=== PATIENT | female | born 1955 | race Caucasian/White ===

== ENCOUNTER 2024-06-07 06:59 | Day surgery (SDC) | payer MEDICARE ==
[~2024-06-07] VITALS: Ht 170.2 cm; Wt 89.8 kg
[2024-06-07] VITALS (7 sets, daily range): BP systolic 115–152; BP diastolic 67–79; PULSE 52–61; RESP 13–19; TEMP 97.6; O2SAT 92–98
[~2024-06-07 06:59] MED LIST: ASPI-543 PO; ATEN-60 PO; LISI10TA34 PO
[2024-06-07] MEDS ORDERED: IODIXANOL 320MG/ML 100ML BTL IV ONE (07:44)
[2024-06-07] MEDS ORDERED: VERAPAMIL 2.5MG/ML INJ 2ML VIAL IV ONE (09:23)
[2024-06-07] MEDS ORDERED: HEPARIN SODIUM (PORCINE) 5000 UNITS/ML 1ML VIAL ONE (09:23)
[2024-06-07] MEDS ORDERED: fentaNYL CITRATE 100 MCG/2 ML VL ONE (09:24)
[2024-06-07] MEDS ORDERED: MIDAZOLAM HCL 2MG/2ML 2ml VIAL (1mg/ml) ONE (09:24)
[2024-06-07] MEDS ORDERED: LIDOCAINE 2%HCL (LOCAL ANESTH.) INJ 20ML MDV ONE (09:29)
== END 2024-06-07 12:12 | disposition home or self-care (01) ==
LOC: CATH 06:59
PROVIDERS: ATTEND Internal Medicine
DX: R94.39 Abnormal result of other cardiovascular function study (principal); Z79.82 Long term (current) use of aspirin
CPT/HCPCS: 93458; C1894; J1644; J2250; J3010; Q9967; 99152

== ENCOUNTER 2025-08-23 10:37 | Inpatient (IN) | payer MEDICARE ==
[~2025-08-23] VITALS: Ht 170.2 cm; Wt 90.1 kg
--- NOTE | 2025-08-23 11:19 | ED.PDOC ---
SOB-HPI HPI Comments HPI: 70 y/o F, with PMHx of HTN, presents to the ED for CC of shortness of breath. Patient states, she has been experiencing symptoms of shortness of breath for multiple months. Patient relays, shortness of breath to worsen while lying down and on execration. Patient reports, that she has followed up with a Explosive Operator Fuse for symptoms and was told symptoms were unrelated to her heart and were rather associated with her lungs. Patient denies chest pain, extremity swelling, fatigue, weakness, or Flu-like symptoms. No other symptoms or modifying factors are present at this time. Patient did not take her blood pressure medications today. Patient denies any history of congestive heart failure. Initial Vitals BP: HR: RR: O2 Sat: Temp: Past Medical history: HTN Past Surgical history: Heart ANGIOGRAM Medications: ATENOLOL, LISINOPRIL Social History: Denies smoking, ETOH, and drug use. Allergies: NKDA HPI: Poor Historian. REVIEW OF SYSTEMS: CONSTITUTIONAL: Denies acute: fever, diaphoresis, chills, HEAD: Denies acute: headache, photophobia Eyes: Denies acute: Double vision, vision loss, eye pain, eye discharge. EARS: Denies acute: tinnitus, hearing loss, ear discharge, ear pain, THROAT: Denies acute: sore throat, swelling, difficulty swallowing , pain with swallowing, change in voice. NECK: Denies acute: neck pain, neck swelling, stiff neck. HEART: Denies acute : chest pain, palpitations, LUNGS: Denies acute: wheezing, cough, hemoptysis ABDOMEN: Denies acute: abdominal pain, Nausea, Vomiting, diarrhea, melena , hematemesis, hematochezia SKIN: Denies acute: rash, redness, lesions, itchiness. EXTREMITIES: Denies acute: calf pain, numbness, tingling, weakness, denies pain in extremity. Denies acute: Low back pain. Neuro: Denies acute: focal neurological deficit, motor or sensory focal neurological deficit, tremors, seizure like activity, confusion, dizziness, change in mental status, loss of bowel or bladder function, cauda equina like symptoms. : Denies acute: dysuria, hematuria, flank pain, increase in urinary frequency. PSYCH: Denies acute: hallucination, suicidal ideation, homicidal ideation. FEMALE: Denies acute: abnormal vaginal bleeding, foul odor, unusual discharge. PHYSICAL EXAM: General: -----mild---acute distress, awake and alert. Head: normocephalic, atraumatic. No raccoon's eyes, no gonzalez sign. Neck: supple, trachea is midline, no swelling. Throat: Normal phonation. Eyes:, no erythema, no purulent discharge, no proptosis, no icterus. Heart: Irregular rate and rhythm consistent with atrial fibrillation with RVR, no significant murmur appreciated. Lungs: no apparent respiratory distress, Able to speak in full sentences. No wheezing, no rhonchi, no crackles. No stridors Clear to auscultation bilaterally. Abdomen: non tender to palpation, non distended, soft, no guarding, no rebound, + bowel sounds. Neuro: Awake, Alert, oriented to name, self, situation, follows commands GCS=15. Speech is normal. Skin: no petechia, no purpura, no cyanosis, non-pale, not jaundice. Lower extremities: --no - Pitting edema no deformity, no focal swelling, no calf TTP. Makes eye contact. moves all four extremities. Face: no apparent facial droop. Ambulating in the ED independently. ED COURSE: DISCLAIMER: This medical document was created using an electronic medical record system with voice recognition software and computerized dictation system. Although this document has been carefully reviewed, there might still be some phonetic and typographical errors. Occasional wrong-word or "sound-alike" substitutions may have occurred due to the inherent limitations of voice recognition software. The se areas are purely typographical due to imperfections of the software programs and do not reflect any compromise in the patient's medical care. Please read the chart carefully and recognize, using context, where these substitutions have occurred. Chief Complaint: Shortness of Breath Time Seen by MD: 11:00 Reviewed notes: Nurses Notes, Medications, Allergies Information Source: Patient Mode of Arrival: Ambulatory Severity: Moderate Timing: Months Duration: Since onset Context: At Rest PE Risk Factors: None History of: None Prehospital treatment: None Modifying Factors: Nothing Associated Signs and Symptoms: None EKG EKG : Pulse Rate (adult): 130 [place]: Normal Cardiac Rhythm: Afib Block: None Hypertrophy: None ST: Normal Was a procedure done? Was a procedure done?: No Differential Dx Differential Diagnosis: CHF, COPD, Pneumonia, Pulmonary Embolism, Other (DDx include ACS, unstable angina, anxiety, PE, pneumothroax, neoplasm, cardiac ischemia, COPD, asthma, CHF, pleural effusion, tobacco abuse, pneumonia, hypoxia, hypercapnia, anemia., infection/sepsis., pulmonary edema. Asthma, Cardiac tamponade, infection.) X-Ray, Labs, Meds, VS Vital Signs Date Time Temp Pulse Resp B/P (MAP) Pulse Ox O2 Delivery O2 Flow Rate FiO2 08/23/25 16:00 125/105 08/23/25 16:00 90 08/23/25 16:00 86 22 146/89 (108) 97 08/23/25 15:15 69 20 139/84 (102) 95 08/23/25 15:00 95 14 124/96 (105) 97 08/23/25 14:45 88 20 125/92 (103) 94 08/23/25 14:30 89 24 123/81 (95) 95 08/23/25 14:15 88 20 134/77 (96) 96 08/23/25 13:46 94 08/23/25 13:32 140/81 08/23/25 13:30 128 15 140/81 (100) 98 08/23/25 13:22 144 08/23/25 13:15 130 14 136/101 (113) 98 08/23/25 13:06 125/73 (90) 08/23/25 13:03 131 20 82/63 (69) 94 08/23/25 13:02 116/54 08/23/25 12:38 146 123/88 08/23/25 12:30 132 139/93 08/23/25 12:00 126 08/23/25 11:52 136 08/23/25 11:19 130 08/23/25 10:50 129 08/23/25 10:38 98.0 126 18 146/116 94 98.0 Lab Test 08/23/25 13:52 08/23/25 11:48 08/23/25 10:59 Range/Units D-Dimer, Quantitative 2.58 H 0.0-0.49 mg/L FEU Magnesium Level 2.1 1.6-2.6 mg/dL Troponin I High Sensitivity 6 5 5 </=34 ng/L Thyroid Stimulating Hormone (TSH) 2.69 0.55-4.78 uIU/mL White Blood Count 7.6 4.4-10.8 10^3/uL Red Blood Count 4.89 4.0-5.20 10^6/uL Hemoglobin 13.9 12.2-16.2 g/dL Hematocrit 41.9 36.0-46.0 % Mean Corpuscular Volume 85.7 80.0-100.0 fL Mean Corpuscular Hemoglobin 28.5 28.0-32.0 pg Mean Corpuscular Hemoglobin Concent 33.3 32.0-36.0 g/dL Red Cell Distribution Width 14.0 11.8-14.3 % Platelet Count 310 140-450 10^3/uL Mean Platelet Volume 8.7 6.9-10.8 fL Neutrophils (%) (Auto) 64.6 37.0-80.0 % Lymphocytes (%) (Auto) 23.8 10.0-50.0 % Monocytes (%) (Auto) 9.7 0.0-12.0 % Eosinophils (%) (Auto) 1.1 0.0-7.0 % Basophils (%) (Auto) 0.8 0.0-2.0 % Neutrophils # (Auto) 4.9 1.6-8.6 10 ^3/uL Lymphocytes # (Auto) 1.8 0.4-5.4 10 ^3/uL Monocytes # (Auto) 0.7 0-1.3 10 ^3/uL Eosinophils # (Auto) 0.1 0-0.8 10 ^3/uL Basophils # (Auto) 0.1 0-0.2 10 ^3/uL Nucleated Red Blood Cells 0.1 % Sodium Level 144 136-145 mmol/L Potassium Level 4.3 3.5-5.1 mmol/L Chloride Level 108 H 98-107 mmol/L Carbon Dioxide Level 24 20-31 mmol/L Anion Gap 12 5-15 Blood Urea Nitrogen 14 9-23 mg/dL Creatinine 0.97 0.550-1.02 mg/dL Glomerular Filtration Rate Calc 64 >90 mL/min BUN/Creatinine Ratio 14.4 10.0-20.0 Serum Glucose 106 74-106 mg/dL Hemoglobin A1c 5.7 <5.7 % A1C Calcium Level 9.3 8.7-10.4 mg/dL Total Bilirubin 1.0 0.2-1.0 mg/dL Aspartate Amino Transferase (AST) 61 H 13-40 U/L Alanine Aminotransferase (ALT) 84 H 7-40 U/L Alkaline Phosphatase 88 46-116 U/L B-Type Natriuretic Peptide 483.66 0-100 pg/mL Total Protein 7.3 5.7-8.2 g/dL Albumin 4.5 3.2-4.8 g/dL Current Medications Medications (Trade) Dose Ordered Sig/Jeanna Route Start Time Stop Time Status Last Admin Metoprolol Tartrate (Lopressor) 5 mg ONCE ONCE IV 08/23/25 12:00 08/23/25 12:16 DC 08/23/25 12:30 Metoprolol Tartrate (Lopressor) 5 mg ONCE ONCE IV 08/23/25 12:45 08/23/25 12:46 DC 08/23/25 12:38 Diltiazem HCl 125 ml @ 5 mls/hr Q24H ONCE IV 08/23/25 12:45 08/24/25 12:44 08/23/25 13:02 [place] [id number] Ph: [phone] DIAGNOSTIC IMAGING Diagnostic Imaging Report : [id number] Signed PATIENT: JERSEY CONROY ACCT: [id number] UNIT: [id number] : 1955 LOC: ER ROOM / BED: / AGE / SEX: 70 / F ADM STATUS: REG ER SERVICE 1049 ORDERING PHYSICIAN: ERIC ORTEGA DO PROCEDURE(s): CXRP - CHEST PORTABLE REASON: SOB ORDER NUMBER(s): [id number], ACCESSION NUMBER(s): [id number] CHEST RADIOGRAPH Indication: SOB Technique: Single frontal view of the chest was obtained COMPARISON: XY CSPINE COMP 5 VIEW on DOS: 12/27/22 FINDINGS: Lines and Tubes: None Lungs: Increased interstitial prominence. This may represent pulmonary vascular congestion and/or viral pneumonia. Pleura: No effusion. No pneumothorax. Cardiomediastinal contours: Unremarkable Bones: Unremarkable IMPRESSION: Increased interstitial prominence. This may represent pulmonary vascular congestion and/or viral pneumonia. ATED BY: BRADY BORRERO MD DICTATED DATE/TIME: 08/23/251131 SIGNED BY: BRADY BORRERO MD SIGNED DATE/TIME: 08/23/251131 CC: Time of 1ST Reevaluation: 11:30 Reevaluation 1ST: Unchanged Time of 2ND Reevaluation: 21:12 Reevaluation 2ND: Improved Patient Education/Counseling: Diagnosis, Treatment Family Education/Counseling: No Family Present Comments MDM: patient presented with the above HPI.---shortness of breath---workup was initiated. patient was found with the above mentioned diagnosis. the following medications were ordered: please refer to order lists of meds and tests obtained by myself Dr. Ortega. Patient ED course and VS have been stabilized. Patient has been reassessed in the ED and remained in a stable condition. Pertinent incidental findings were discussed with the patient and/or family. Patient/family voices understanding and is agreeable with plan. Patient has been observed in the ED adequate length of time to insure improvement/stability. Escalation of care considered: Consideration of escalation to observation or admission Patient was found with a new onset atrial fibrillation with RVR. Patient was given Lopressor at least two boluses consistent with the home medications of metoprolol. Patient does not respond to the metoprolol continued to be in AFib with RVR. Diltiazem drip was ordered. Patient was found with elevated D-dimer. CTA angiogram of the chest is still pending. Patient was ADMITTED to the medicine team for further evaluation and treatment of their presentation. All the reports of any imaging studies that were ordered by myself were reviewed by myself. 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 Paper Coating Machine Setter (08/23/25 ) Chest Portable (08/23/25 10:49) Diltiazem 125mg/125ml Bag Kit (Cardizem) (08/23/25 12:45) Vital Signs Date Time Temp Pulse Resp B/P (MAP) Pulse Ox O2 Delivery O2 Flow Rate FiO2 08/23/25 16:00 125/105 08/23/25 16:00 90 08/23/25 16:00 86 22 146/89 (108) 97 08/23/25 15:15 69 20 139/84 (102) 95 08/23/25 15:00 95 14 124/96 (105) 97 08/23/25 14:45 88 20 125/92 (103) 94 08/23/25 14:30 89 24 123/81 (95) 95 08/23/25 14:15 88 20 134/77 (96) 96 08/23/25 13:46 94 08/23/25 13:32 140/81 08/23/25 13:30 128 15 140/81 (100) 98 08/23/25 13:22 144 08/23/25 13:15 130 14 136/101 (113) 98 08/23/25 13:06 125/73 (90) 08/23/25 13:03 131 20 82/63 (69) 94 08/23/25 13:02 116/54 08/23/25 12:38 146 123/88 08/23/25 12:30 132 139/93 08/23/25 12:00 126 08/23/25 11:52 136 08/23/25 11:19 130 08/23/25 10:50 129 08/23/25 10:38 98.0 126 18 146/116 94 98.0 Laboratory Tests Test 08/23/25 10:59 White Blood Count 7.6 10^3/uL (4.4-10.8) Medications Medications Dose Ordered Sig/Jeanna Route Start Time Stop Time Status Last Admin Dose Admin Diltiazem HCl 125 ml @ 5 mls/hr Q24H ONCE IV 08/23/25 12:45 08/24/25 12:44 08/23/25 13:02 Metoprolol Tartrate 5 mg ONCE ONCE IV 08/23/25 12:00 08/23/25 12:16 DC 08/23/25 12:30 Metoprolol Tartrate 5 mg ONCE ONCE IV 08/23/25 12:45 08/23/25 12:46 DC 08/23/25 12:38 Departure 1 Departure Time of Disposition: 11:21 Impression: Primary Impression: Atrial fibrillation with RVR Disposition: ADMITTED INPATIENT Admit to: Tele Condition: Guarded Critical Care Note Critical Care Time?: Yes (55 min-critical care time only) Heart Score Heart Score: Heart Score Response (Comments) Value History Slightly Suspicious [address]-Deviation 2 Age >65 2 Risk Factors 1 or 2 risk factors 1 Troponin Normal limit 0 Total 5 I personally scribed for ERIC ORTEGA DO ([email or web address]) on 08/23/25 at 11:19. Electronically submitted by Noreen Reynoos ([email or web address]). I personally scribed for ERIC ORTEGA DO ([email or web address]) on 08/23/25 at 12:55. Electronically submitted by Noreen Reynoso ([email or web address]). ERIC ORTEGA DO Aug 23, 2025 11:19
--- NOTE | 2025-08-23 11:34 | DVH ---
CHEST RADIOGRAPH Indication: SOB Technique: Single frontal view of the chest was obtained COMPARISON: XY CSPINE COMP 5 VIEW on DOS: 12/27/22 FINDINGS: Lines and Tubes: None Lungs: Increased interstitial prominence. This may represent pulmonary vascular congestion and/or viral pneumonia. Pleura: No effusion. No pneumothorax. Cardiomediastinal contours: Unremarkable Bones: Unremarkable IMPRESSION: Increased interstitial prominence. This may represent pulmonary vascular congestion and/or viral pneumonia.
[2025-08-23 11:40] LABS: Hematocrit 41.9 % (36.0-46.0); Hemoglobin 13.9 g/dL (12.2-16.2); Mean Corpuscular Hemoglobin 28.5 pg (28.0-32.0); Mean Corpuscular Volume 85.7 fL (80.0-100.0); Nucleated Red Blood Cells % 0.1 %
[2025-08-23 11:57] LABS: Albumin 4.5 g/dL (3.2-4.8); Alkaline Phosphatase 88 U/L (46-116); Anion Gap 12 (5-15); BUN/Creatinine Ratio 14.4 (10.0-20.0); Blood Urea Nitrogen 14 mg/dL (9-23); Calcium 9.3 mg/dL (8.7-10.4); Carbon Dioxide 24 mmol/L (20-31); Potassium 4.3 mmol/L (3.5-5.1); Sodium 144 mmol/L (136-145); Total Protein 7.3 g/dL (5.7-8.2)
[2025-08-23 11:58] LABS: Alanine Aminotransferase 84 U/L (7-40); Bilirubin, Total 1.0 mg/dL (0.2-1.0); Chloride 108 mmol/L (98-107); Glucose 106 mg/dL (74-106)
[2025-08-23] MEDS: METOPROLOL TARTRATE 1MG/1ML-5ML VIAL IV ONE ×2 (12:30→12:38)
--- NOTE | 2025-08-23 12:41 | ECG ---
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
--- NOTE | 2025-08-23 13:36 | ECG ---
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
--- NOTE | 2025-08-23 13:36 | ECG ---
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
[2025-08-23] MEDS ORDERED: ONDANSETRON HCL 4 MG/2 ML VIAL IV PRN (16:30)
[2025-08-23] MEDS ORDERED: MORPHINE SULFATE INJ 2 MG/ml SYRG IV PRN (16:30)
[2025-08-23] MEDS ORDERED: NITROGLYCERIN 0.4 MG SL TAB SL PRN (16:30)
--- NOTE | 2025-08-23 16:47 | DVHHPRES ---
History of Present Illness Resident Creating Document: LANDY RODRIGUEZ RESIDENT History of Present Illness Teresa Aj is a 70-year old female with past medical history of hypertension who came to the ED with a chief complaint of shortness of breath since 2 days. Patient mentions she has been having shortness of breaths since 2 days, mostly at night, increased on lying down and she felt like she was gasping for air. The patient mentioned that she has been experiencing palpitations on and off since the last 4 years and has been following up with cardiology. The patient mentioned she also had a slight nonproductive cough since the last 2 days. She denies any fever, chills, tightness in the chest or chest pain. The patient went to urgent care this morning, where she was told she has an enlarged heart and was sent to the ED. Patient mentions she has had similar complaints in the past and had to come to the ED twice before. She mentioned she had chest pain last year when she underwent angiography but no stents were placed. On admission, patient was found to have AFib with RVR. She was admitted for further management. She was started on diltiazem drip, which was discontinued later and she was given metoprolol 12.5 mg po. Past medical history : Hypertension Past surgical history: Angiography last year, no stents placed, Tonsillectomy in childhood Home medications: Atenolol 25 mg p.o. daily, lisinopril 10 mg p.o. daily Social & Personal history: Lives at home by herself Smoking: Denies Alcohol: Rare consumption Drugs: Denies Allergies: No known allergies Review of Systems Review of Systems Patient seen and examined at bedside. Patient is alert and oriented to time, place person and responding to all questions. Eyes: No Pain, No Vision change, No Conjunctivae inflammation, No Eyelid i nflammation, No Redness ENT: No Ear pain, No Ear discharge, No Nose pain, No Nose discharge, No Nose congestion, No Mouth pain, No Mouth swelling, No Throat pain, No Throat swelling Cardiovascular: No Chest Pain, No Palpitations, No Orthopnea, No Paroxysmal No Dyspnea, No Edema, No Lt Headedness Respiratory: Cough, No Dry, Shortness of breath, No SOB with exertion, No Wheezing, No Hemoptysis, No Pleuritic Pain, No Sputum Gastrointestinal: No Nausea, No Vomiting, No Abdominal Pain, No Diarrhea, No Constipation, No Melena, No Hematochezia Genitourinary: No Dysuria, No Frequency, No Incontinence, No Hematuria, No Retention Allergies: Coded Allergies: NO KNOWN ALLERGIES (Unverified , 08/23/25) Medications Current Medications Medications Dose Ordered Sig/Jeanna Route Start Time Stop Time Status Last Admin Dose Admin Ondansetron HCl 4 mg Q4HP PRN IV 08/23/25 16:30 Acetaminophen 650 mg Q6HP PRN PO 08/23/25 16:30 Nitroglycerin 0.4 mg Q5MINP PRN SL 08/23/25 16:30 Morphine Sulfate 2 mg Q30M PRN IV 08/23/25 16:30 Enoxaparin Sodium 80 mg Q12HR SC 08/23/25 22:00 UNV Lisinopril 10 mg DAILY PO 08/24/25 10:00 UNV Enoxaparin Sodium 80 mg BID SC 08/23/25 22:00 Exam Vital Signs Vital Signs Date Time Temp Pulse Resp B/P (MAP) Pulse Ox O2 Delivery O2 Flow Rate FiO2 08/23/25 16:00 125/105 08/23/25 16:00 86 22 97 08/23/25 10:38 98.0 98.0 Exam General Appearance: Cooperative. Well developed. Well nourished. NAD Head Exam: Normal inspection Neck Exam: Normal inspection. Non-tender. Normal alignment Pulmonary/Respiratory: Chest non-tender. Clear bilateral breath sounds, no multi craft maintenance technician ckles, no wheezing. Cardiovascular/Chest: irregular rate and rhythm. No murmurs. No JVD. Peripheral Pulses: 2+ Radial (R). 2+ Radial (L). 2+ Pedal (R). 2+ Pedal (L) Abdominal Exam: Normal bowel sounds. Soft. normal abdomen, no visible veins, Nontender. No hepatospenomegaly. No masses Ankle Exam: Negative ankle edema Lower extremities: Negative lower extremity edema Neuro/Mental Status: A&O x4. Coherent. Thoughts/Psych: Normal thought pattern. Appropriate mood and affect. Good judgement and insight Skin Exam: Normal inspection. Normal color. Warm. Dry Labs/Xrays Labs Test 08/23/25 13:52 08/23/25 10:59 Range/Units Troponin I High Sensitivity 6 </=34 ng/L White Blood Count 7.6 4.4-10.8 10^3/uL Red Blood Count 4.89 4.0-5.20 10^6/uL Hemoglobin 13.9 12.2-16.2 g/dL Hematocrit 41.9 36.0-46.0 % Mean Corpuscular Volume 85.7 80.0-100.0 fL Mean Corpuscular Hemoglobin 28.5 28.0-32.0 pg Mean Corpuscular Hemoglobin Concent 33.3 32.0-36.0 g/dL Red Cell Distribution Width 14.0 11.8-14.3 % Platelet Count 310 140-450 10^3/uL Mean Platelet Volume 8.7 6.9-10.8 fL Neutrophils (%) (Auto) 64.6 37.0-80.0 % Lymphocytes (%) (Auto) 23.8 10.0-50.0 % Monocytes (%) (Auto) 9.7 0.0-12.0 % Eosinophils (%) (Auto) 1.1 0.0-7.0 % Basophils (%) (Auto) 0.8 0.0-2.0 % Neutrophils # (Auto) 4.9 1.6-8.6 10 ^3/uL Lymphocytes # (Auto) 1.8 0.4-5.4 10 ^3/uL Monocytes # (Auto) 0.7 0-1.3 10 ^3/uL Eosinophils # (Auto) 0.1 0-0.8 10 ^3/uL Basophils # (Auto) 0.1 0-0.2 10 ^3/uL Nucleated Red Blood Cells 0.1 % Sodium Level 144 136-145 mmol/L Potassium Level 4.3 3.5-5.1 mmol/L Chloride Level 108 H 98-107 mmol/L Carbon Dioxide Level 24 20-31 mmol/L Anion Gap 12 5-15 Blood Urea Nitrogen 14 9-23 mg/dL Creatinine 0.97 0.550-1.02 mg/dL Glomerular Filtration Rate Calc 64 >90 mL/min BUN/Creatinine Ratio 14.4 10.0-20.0 Serum Glucose 106 74-106 mg/dL Calcium Level 9.3 8.7-10.4 mg/dL Total Bilirubin 1.0 0.2-1.0 mg/dL Aspartate Amino Transferase (AST) 61 H 13-40 U/L Alanine Aminotransferase (ALT) 84 H 7-40 U/L Alkaline Phosphatase 88 46-116 U/L B-Type Natriuretic Peptide 483.66 0-100 pg/mL Total Protein 7.3 5.7-8.2 g/dL Albumin 4.5 3.2-4.8 g/dL SEPSIS Sepsis Screen Date sepsis recognized/suspect: Aug 23, 2025 Time Sepsis recognized/suspect: 1041 Recent Procedure: No On Antibiotic Therapy: No Respiratory Rate >20: No Heart Rate >90: Yes Temp<36 C (96.8 F) or >38.3 C: No SBP <90 or MAP <65 mmHG: No New Acute Mental Status Change: No Is the patient on CPAP, BIPAP,: No Physician Orders Electrocardigram (08/23/25 10:41) Electrocardigram (08/23/25 11:41) Electrocardigram (08/23/25 13:41) Dry Chain Operator (08/23/25 ) Urinalysis (08/23/25 10:49) Chest Portable (08/23/25 10:49) Diltiazem 125mg/125ml Bag Kit (Cardizem) (08/23/25 12:45) Admit (08/23/25 16:24) Allergies (08/23/25 16:24) Code Status (08/23/25 16:24) Ondansetron Hcl (Zofran) (08/23/25 16:30) Complete Blood Count (08/24/25 04:00) Comprehensive Metabolic Panel (08/24/25 04:00) Condition: Unstable (08/23/25 16:24) Acetaminophen Tablet (Tylenol Tablet) (08/23/25 16:30) Clear Liq Diet (08/23/25 Dinner) Nitroglycerin Sublingual (Ntrostat Subli (08/23/25 16:30) Morphine Sulfate Injection (08/23/25 16:30) Notify Md Of Changes From Base (08/23/25 16:24) Automobile Service Advisor For 24 Hours (08/23/25 16:24) Emergency Dysrhythmia Protocol (08/23/25 16:24) Rhythm Strips Once Every Shift (08/23/25 16:24) Stat Ekg For Chest Pain (08/23/25 16:24) Echo 2d Mode Cardiac Dop (08/23/25 16:28) D-Dimer (08/23/25 16:28) Thyroid Stimulating Hormone (08/23/25 16:28) Urinalysis (08/23/25 16:28) Rapid Influenza A&B (08/23/25 16:28) Hemoglobin A1c (08/23/25 16:35) Aspirin Tablet (08/24/25 10:00) Lisinopril Tablet (Zestril Tablet) (08/24/25 10:00) Enoxaparin Sodium (Lovenox) (08/23/25 22:00) Vital Signs Date Time Temp Pulse Resp B/P (MAP) Pulse Ox O2 Delivery O2 Flow Rate FiO2 08/23/25 16:00 125/105 08/23/25 16:00 86 22 146/89 (108) 97 08/23/25 15:15 69 20 139/84 (102) 95 08/23/25 15:00 95 14 124/96 (105) 97 08/23/25 14:45 88 20 125/92 (103) 94 08/23/25 14:30 89 24 123/81 (95) 95 08/23/25 14:15 88 20 134/77 (96) 96 08/23/25 13:46 94 08/23/25 13:32 140/81 08/23/25 13:30 128 15 140/81 (100) 98 08/23/25 13:22 144 08/23/25 13:15 130 14 136/101 (113) 98 08/23/25 13:06 125/73 (90) 08/23/25 13:03 131 20 82/63 (69) 94 08/23/25 13:02 116/54 08/23/25 12:38 146 123/88 08/23/25 12:30 132 139/93 08/23/25 12:00 126 08/23/25 11:52 136 08/23/25 11:19 130 08/23/25 10:50 129 08/23/25 10:38 98.0 126 18 146/116 94 98.0 Laboratory Tests Test 08/23/25 10:59 White Blood Count 7.6 10^3/uL (4.4-10.8) Medications Medications Dose Ordered Sig/Jeanna Route Start Time Stop Time Status Last Admin Dose Admin Diltiazem HCl 125 ml @ 5 mls/hr Q24H ONCE IV 08/23/25 12:45 08/24/25 12:44 08/23/25 13:02 5 MLS/HR Metoprolol Tartrate 5 mg ONCE ONCE IV 08/23/25 12:00 08/23/25 12:16 DC 08/23/25 12:30 5 MG Metoprolol Tartrate 5 mg ONCE ONCE IV 08/23/25 12:45 08/23/25 12:46 DC 08/23/25 12:38 5 MG Assessment/Plan Assessment/Plan # Acute Afib with RVR, unknown onset # Possible acute CHF exacerbation # Possible acute pneumonia, likely bacterial gram positive/gram negative # Possible acute pulmonary edema # Acute hypoxic respiratory distress, likely due to above # Rule out PE CHADVASc score of 4 -EKG showed Afib -Echo ordered, pending report -Diltiazem drip 5ml/hr,discontinued after titrating down -started anticoagulation with aspirin 81mg po daily -cardiology consult for Dr Hu -Ddimer is 2.56- ordered CT angio chest -started on anticoagulation with lovenox 80 mg iv bid # Hypertension, controlled -resume home medications lisinopril 10mg po daily -started metoprolol tartrate 12.5 mg po once, continue with 25mg po bid PUD prophylaxis: DVT prophylaxis: Goals of care: Full code, discussed for >23 minutes Plan discussed with patient Plan discussed with Dr Cool Plan discussed with: Patient, Daughter My Orders Orders - LANDY RODRIGUEZ RESIDENT Procedure Category Date Status Time Admit ADMIT 08/23/25 Transmitted 16:24 Allergies RICARDO 08/23/25 In Process 16:24 Code Status CODE 08/23/25 Transmitted 16:24 Ondansetron Hcl PHA 08/23/25 In Process (Zofran) 16:30 Complete Blood Count LAB 08/24/25 Verified 04:00 Comprehensive LAB 08/24/25 Verified Metabolic Panel 04:00 Condition: Unstable RICARDO 08/23/25 In Process 16:24 Acetaminophen Tablet PHA 08/23/25 In Process (Tylenol Tablet) 16:30 Clear Liq Diet DIET 08/23/25 Transmitted Dinner Nitroglycerin PHA 08/23/25 In Process Sublingual (Ntrostat 16:30 Morphine Sulfate PHA 08/23/25 In Process Injection 16:30 Notify Of Changes RICARDO 08/23/25 In Process From Base 16:24 Automobile Service Advisor For [facility] 08/23/25 In Process 24 Hours 16:24 Emergency Dysrhythmia RICARDO 08/23/25 In Process Protocol 16:24 Rhythm Strips Once [facility] 08/23/25 In Process Every Shift 16:24 Stat Ekg For Chest [facility] 08/23/25 In Process Pain 16:24 Echo 2d Mode Cardiac US 08/23/25 Logged DOP 16:28 D-Dimer LAB 08/23/25 In Process 16:28 Thyroid Stimulating LAB 08/23/25 In Process Hormone 16:28 Urinalysis LAB 08/23/25 Logged 16:28 Rapid Influenza A&B LAB 08/23/25 Logged 16:28 Hemoglobin A1c LAB 08/23/25 In Process 16:35 Date of Service: Aug 23, 2025 Billing Provider: GEORGE SIERRA MD Common Visit Codes: [id number] INP/OBS CARE (HIGH) LANDY RODRIGUEZ RESIDENT Aug 23, 2025 16:47
[2025-08-23] MEDS: METOPROLOL TARTRATE 25 MG TAB PO ONE (17:22)
[2025-08-23] MEDS: LISINOPRIL 20 MG TAB PO ONE ×2 (18:56→18:57)
[2025-08-23 19:30] VITALS: PULSE 114; RESP 18; O2SAT 96
[2025-08-23] MEDS: IOHEXOL 350 MG/ML 100ML IJ ONE (20:32)
[2025-08-23] MEDS: METOPROLOL TARTRATE 25 MG TAB PO SCH (21:51)
[2025-08-23 21:52] LABS: Urine Protein, UAD TRACE (Negative)
[2025-08-23] MEDS: ENOXAPARIN SOD 80 MG/0.8ML SYRINGE SC SCH (21:52)
[2025-08-23] MEDS ORDERED: ENOXAPARIN SOD 100 MG/1 ML SYRINGE SC SCH (22:00)
[2025-08-23 22:11] LABS: Amphetamine Screen, Urine Neg (NEGATIVE); Barbiturate Scree,Urine Neg (NEGATIVE); Benzodiazephine Screen, Urine Neg (NEGATIVE); Cannabinoid Screen, Urine Neg (NEGATIVE); Cocaine Screen, Urine Neg (NEGATIVE); Opiate Scree,Urine Neg (NEGATIVE); Phencyclidine Screen, Urine Neg (NEGATIVE)
[2025-08-23 22:32] LABS: COVID19 ANTIGEN SOFIA FIA NEGATIVE (NEGATIVE)
[2025-08-24] VITALS (9 sets, daily range): BP systolic 122–136; BP diastolic 68–96; PULSE 82–137; RESP 16–19; TEMP 97.2–97.4; O2SAT 95–99
[2025-08-24] MEDS: METOPROLOL TARTRATE 25 MG TAB PO ONE (03:32)
[2025-08-24 04:54] LABS: Hematocrit 38.3 % (36.0-46.0); Hemoglobin 12.8 g/dL (12.2-16.2); Mean Corpuscular Hemoglobin 28.6 pg (28.0-32.0); Mean Corpuscular Volume 85.7 fL (80.0-100.0); Nucleated Red Blood Cells % 0.1 %
[2025-08-24 05:22] LABS: Albumin 3.9 g/dL (3.2-4.8); Alkaline Phosphatase 74 U/L (46-116); Anion Gap 11 (5-15); BUN/Creatinine Ratio 19.4 (10.0-20.0); Blood Urea Nitrogen 14 mg/dL (9-23); Calcium 8.9 mg/dL (8.7-10.4); Carbon Dioxide 21 mmol/L (20-31); Glucose 89 mg/dL (74-106); Potassium 4.0 mmol/L (3.5-5.1); Sodium 140 mmol/L (136-145); Total Protein 6.5 g/dL (5.7-8.2)
[2025-08-24 05:27] LABS: Alanine Aminotransferase 61 U/L (7-40); Bilirubin, Total 1.3 mg/dL (0.2-1.0); Chloride 108 mmol/L (98-107)
--- NOTE | 2025-08-24 07:30 | DVH ---
CTA Chest with intravenous contrast INDICATION: rule out PE COMPARISON: XY CHEST PORTABLE on DOS: 08/23/25 TECHNIQUE: Multidetector spiral CTA of the chest was performed of the chest with 100 cc of omnipaque 350 intravenous contrast. PULMONARY ANGIOGRAPHY PROTOCOL was utilized using a bolus-tracking technique centered on the main pulmonary artery. Coronal and sagittal multiplanar and MIP reformats were performed. Radiation Dose : 1. Chest: CTDI volume is 38.44 mGy. Dose-length product is 991.7 mGy*cm The dose indicators for CT are the volume Computed Tomography (CT) Dose Index (CTDIvol) and the Dose Length Product (DLP), and are measured in units of mGy and mGy-cm, respectively. These indicators are not patient dose, but values generated from the CT scanner acquisition factors. The report includes radiation exposure data for exposures received during this examination. FINDINGS: Pulmonary artery: No central, lobar or proximal segmental pulmonary embolus. Lower neck: Unremarkable thyroid. Lungs: Bilateral interlobular septal thickening. Mild diffuse ground-glass opacities. Central airways: Patent Pleura: No pneumothorax. Small bilateral pleural effusions. Heart/Vascular Structures: The heart is enlarged. No pericardial effusion. Thoracic aorta is normal in caliber. No aneurysm or dissection. Lymph Nodes: No mediastinal or hilar lymphadenopathy. Esophagus:Grossly unremarkable. Musculoskeletal: Unremarkable. Body wall: Unremarkable. Upper abdomen: Unremarkable. IMPRESSION: 1. No evidence of pulmonary embolism. 2. Bilateral interlobular septal thickening and mild diffuse ground-glass opacity suggestive of pulmonary edema. 3. Small bilateral pleural effusions. 4. Cardiomegaly.
[2025-08-24] MEDS: METOPROLOL TARTRATE 25 MG TAB PO SCH (08:50)
[2025-08-24] MEDS: LISINOPRIL 5 MG TAB PO SCH (08:50)
[2025-08-24] MEDS: DIGOXIN 0.125 MG TAB PO ONE (09:33)
[2025-08-24] MEDS: FUROSEMIDE 20 MG/2 ML VIAL IV SCH (11:29)
--- NOTE | 2025-08-24 11:55 | DVHINCON2 ---
Date of service: Aug 24, 2025 History of Present Illness Teresa Aj is a 70-year old female with past medical history of hypertension who came to the ED with a chief complaint of shortness of breath since 2 days. Patient mentions she has been having shortness of breaths since 2 days, mostly at night, increased on lying down and she felt like she was gasping for air. The patient mentioned that she has been experiencing palpitations on and off since the last 4 years and has been following up with cardiology. The patient mentioned she also had a slight nonproductive cough since the last 2 days. She denies any fever, chills, tightness in the chest or chest pain. The patient went to urgent care this morning, where she was told she has an enlarged heart and was sent to the ED. Patient mentions she has had similar complaints in the past and had to come to the ED twice before. She mentioned she had chest pain last year when she underwent angiography but no stents were placed. On admission, patient was found to have AFib with RVR. She was admitted for further management. She was started on diltiazem drip, which was discontinued later and she was given metoprolol 12.5 mg po. Past medical history : Hypertension Past surgical history: Angiography last year, no stents placed, Tonsillectomy in childhood Home medications: Atenolol 25 mg p.o. daily, lisinopril 10 mg p.o. daily Social & Personal history: Lives at home by herself Smoking: Denies Alcohol: Rare consumption Drugs: Denies Allergies: No known allergies Past Medical History reviewed Allergies: Coded Allergies: NO KNOWN ALLERGIES (Unverified , 08/23/25) Home Meds Reported Medications Aspirin (Aspir-Low) 81 Mg Tab, 81 MG PO DAILY for CHEST PAIN, MG 06/02/24 Atenolol (Atenolol) 25 Mg Tab, 25 MG PO DAILY for HTN, MG 06/02/24 Lisinopril (Lisinopril) 10 Mg Tab, 10 MG PO DAILY for HTN for 30 Days, MG 06/02/24 Current Medications Current Medications Medications (Trade) Dose Ordered Sig/Jeanna Route PRN Reason Start Time Stop Time Status Last Admin Ondansetron HCl (Zofran) 4 mg Q4HP PRN IV NAUSEA / VOMITING 08/23/25 16:30 Acetaminophen (Tylenol Tablet) 650 mg Q6HP PRN PO PAIN SCALE 1-3 OR TEMP>100.4 08/23/25 16:30 Nitroglycerin (Ntrostat Sublingual) 0.4 mg Q5MINP PRN SL FOR CHEST PAIN 08/23/25 16:30 Morphine Sulfate 2 mg Q30M PRN IV FOR CHEST PAIN 08/23/25 16:30 Enoxaparin Sodium (Lovenox) 80 mg Q12HR SC 08/23/25 22:00 UNV Aspirin 81 mg DAILY PO 08/24/25 10:00 08/24/25 08:49 Lisinopril (Zestril Tablet) 10 mg DAILY PO 08/24/25 10:00 08/24/25 08:50 Enoxaparin Sodium (Lovenox) 80 mg BID SC 08/23/25 22:00 08/24/25 08:51 Metoprolol Tartrate (Lopressor Tablet) 25 mg BID PO 08/23/25 22:00 08/24/25 06:10 DC 08/23/25 21:51 Ceftriaxone Sodium 50 ml @ 100 mls/hr DAILY@09 IV 08/24/25 09:00 08/24/25 08:46 Metoprolol Tartrate (Lopressor Tablet) 50 mg BID PO 08/24/25 10:00 08/24/25 08:50 Digoxin (Lanoxin Tablet) 0.125 mg DAILY PO 08/25/25 10:00 Furosemide (Lasix Injection) 20 mg DAILY IV 08/24/25 10:00 08/24/25 11:29 Review of Systems 10 pt ros otherwise negative Vital Signs Vital Signs Date Time Temp Pulse Resp B/P (MAP) Pulse Ox O2 Delivery O2 Flow Rate FiO2 08/24/25 11:29 129/87 08/24/25 09:50 121 08/24/25 09:30 21 96 08/24/25 08:00 Room Air* 0 21 08/24/25 08:00 98.1 98.1 Physical Exam nad s1 s2 irregular ctab soft nt/nd no edema Labs/Diagnostic Data Labs Test 08/24/25 04:39 08/23/25 22:01 08/23/25 21:30 08/23/25 17:09 Range/Units White Blood Count 7.2 4.4-10.8 10^3/uL Red Blood Count 4.46 4.0-5.20 10^6/uL Hemoglobin 12.8 12.2-16.2 g/dL Hematocrit 38.3 36.0-46.0 % Mean Corpuscular Volume 85.7 80.0-100.0 fL Mean Corpuscular Hemoglobin 28.6 28.0-32.0 pg Mean Corpuscular Hemoglobin Concent 33.4 32.0-36.0 g/dL Red Cell Distribution Width 14.0 11.8-14.3 % Platelet Count 253 140-450 10^3/uL Mean Platelet Volume 8.3 6.9-10.8 fL Neutrophils (%) (Auto) 67.5 37.0-80.0 % Lymphocytes (%) (Auto) 21.3 10.0-50.0 % Monocytes (%) (Auto) 9.2 0.0-12.0 % Eosinophils (%) (Auto) 1.4 0.0-7.0 % Basophils (%) (Auto) 0.6 0.0-2.0 % Neutrophils # (Auto) 4.9 1.6-8.6 10 ^3/uL Lymphocytes # (Auto) 1.5 0.4-5.4 10 ^3/uL Monocytes # (Auto) 0.7 0-1.3 10 ^3/uL Eosinophils # (Auto) 0.1 0-0.8 10 ^3/uL Basophils # (Auto) 0 0-0.2 10 ^3/uL Nucleated Red Blood Cells 0.1 % Sodium Level 140 136-145 mmol/L Potassium Level 4.0 3.5-5.1 mmol/L Chloride Level 108 H 98-107 mmol/L Carbon Dioxide Level 21 20-31 mmol/L Anion Gap 11 5-15 Blood Urea Nitrogen 14 9-23 mg/dL Creatinine 0.72 0.550-1.02 mg/dL Glomerular Filtration Rate Calc 91 >90 mL/min BUN/Creatinine Ratio 19.4 10.0-20.0 Serum Glucose 89 74-106 mg/dL Calcium Level 8.9 8.7-10.4 mg/dL Total Bilirubin 1.3 H 0.2-1.0 mg/dL Aspartate Amino Transferase (AST) 34 13-40 U/L Alanine Aminotransferase (ALT) 61 H 7-40 U/L Alkaline Phosphatase 74 46-116 U/L Total Protein 6.5 5.7-8.2 g/dL Albumin 3.9 3.2-4.8 g/dL SARS-CoV-2 Antigen (Rapid) Negative NEGATIVE Urine Color Yellow Yellow Urine Clarity Clear Clear Urine pH 5.0 5.0-9.0 Urine Specific [place] 1.027 1.001-1.035 Urine Protein Trace H Negative Urine Ketones 1+ H Negative Urine Blood Negative Negative /uL Urine Nitrite Negative Negative Urine Bilirubin Negative Negative Urine Urobilinogen Normal Negative mg/dL Urine Leukocyte Esterase 3+ Negative /uL Urine RBC 5 0 - 4 /hpf Urine Microscopic WBC 26 H 0-5 /HPF Urine Squamous Epithelial Cells Few <5 /hpf Urine Bacteria None seen None Seen /hpf Urine Glucose Normal Normal mg/dL Urine Opiates Screen Neg NEGATIVE Urine Fentanyl Screen Neg NEGATIVE Urine Barbiturates Screen Neg NEGATIVE Urine Phencyclidine Screen Neg NEGATIVE Urine Amphetamines Screen Neg NEGATIVE Urine Benzodiazepines Screen Neg NEGATIVE Urine Cocaine Screen Neg NEGATIVE Urine Cannabinoids Screen Neg NEGATIVE Influenza Type A Antigen Negative Negative Influenza Type B Antigen Negative Negative Test 08/23/25 13:52 08/23/25 10:59 Range/Units D-Dimer, Quantitative 2.58 H 0.0-0.49 mg/L FEU Magnesium Level 2.1 1.6-2.6 mg/dL Troponin I High Sensitivity 6 </=34 ng/L Thyroid Stimulating Hormone (TSH) 2.69 0.55-4.78 uIU/mL Hemoglobin A1c 5.7 <5.7 % A1C B-Type Natriuretic Peptide 483.66 0-100 pg/mL Assessment afib htn HL Plan/Recommendation start doac change to amio gtt likely will change to SR in <24 hours with amio dc CCB echo negative cath Plan discussed with: Patient HANNA LAMBERT MD Aug 24, 2025 11:55
[2025-08-24] MEDS: AMIODARONE BOLUS KIT 100 ML IV ONE (12:27)
--- NOTE | 2025-08-24 19:48 | DVHPNRES ---
Progress Note Date Seen: Aug 24, 2025 Resident Creating Document: LANDY RODRIGUEZ RESIDENT Medical Necessity Reason Pt with a Central, PICC or Fol: No Subjective Review of Systems Teresa Aj is a 70-year old female with past medical history of hypertension who came to the ED with a chief complaint of shortness of breath since 2 days. Patient mentions she has been having shortness of breaths since 2 days, mostly at night, increased on lying down and she felt like she was gasping for air. The patient mentioned that she has been experiencing palpitations on and off since the last 4 years and has been following up with cardiology. The patient mentioned she also had a slight nonproductive cough since the last 2 days. She denies any fever, chills, tightness in the chest or chest pain. The patient went to urgent care this morning, where she was told she has an enlarged heart and was sent to the ED. Patient mentions she has had similar complaints in the past and had to come to the ED twice before. She mentioned she had chest pain last year when she underwent angiography but no stents were placed. On admission, patient was found to have AFib with RVR. She was admitted for further management. She was started on diltiazem drip, which was discontinued later and she was given metoprolol 12.5 mg po. Past medical history : Hypertension Past surgical history: Angiography last year, no stents placed, Tonsillectomy in childhood Home medications: Atenolol 25 mg p.o. daily, lisinopril 10 mg p.o. daily Social & Personal history: Lives at home by herself Smoking: Denies Alcohol: Rare consumption Drugs: Denies Allergies: No known allergies Patient seen and examined at bedside. Patient is alert and oriented to time, place person and responding to all questions. Eyes: No Pain, No Vision change, No Conjunctivae inflammation, No Eyelid inflammation, No Redness ENT: No Ear pain, No Ear discharge, No Nose pain, No Nose discharge, No Nose congestion, No Mouth pain, No Mouth swelling, No Throat pain, No Throat swelling Cardiovascular: No Chest Pain, No Palpitations, No Orthopnea, No Paroxysmal No Dyspnea, No Edema, No Lt Headedness Respiratory: Cough, No Dry, Shortness of breath, No SOB with exertion, No Wheezing, No Hemoptysis, No Pleuritic Pain, No Sputum Gastrointestinal: No Nausea, No Vomiting, No Abdominal Pain, No Diarrhea, No Constipation, No Melena, No Hematochezia Genitourinary: No Dysuria, No Frequency, No Incontinence, No Hematuria, No Retention 08/24/25- The patient was seen at bedside today. Patient mentioned her shortness of breath has improved since yesterday. She was evaluated by termite technician Dr. Hu and started on amiodarone iv bolus followed by amiodarone drip to convert her back to sinus rhythm. CT angio showed no evidence of pulmonary embolism, bilateral interlobular septal thickening and mild diffuse ground-glass opacity suggestive of pulmonary edema, small bilateral pleural effusion and cardiomegaly. We ordered lower limb DVT scan to rule out DVT and started her on breathing treatment. Objective vital signs Vital Sign Date Time Temp Pulse Resp B/P (MAP) Pulse Ox O2 Delivery O2 Flow Rate FiO2 08/24/25 17:31 97.2 109 18 136/68 (90) 97 97.2 08/24/25 17:31 Room Air* 0 21 medications Current Medications Medications Dose Ordered Sig/Jeanna Route Start Time Stop Time Status Last Admin Dose Admin Ondansetron HCl 4 mg Q4HP PRN IV 08/23/25 16:30 Acetaminophen 650 mg Q6HP PRN PO 08/23/25 16:30 Nitroglycerin 0.4 mg Q5MINP PRN SL 08/23/25 16:30 Morphine Sulfate 2 mg Q30M PRN IV 08/23/25 16:30 Enoxaparin Sodium 80 mg Q12HR SC 08/23/25 22:00 UNV Aspirin 81 mg DAILY PO 08/24/25 10:00 08/24/25 08:49 81 MG Lisinopril 10 mg DAILY PO 08/24/25 10:00 08/24/25 08:50 10 MG Enoxaparin Sodium 80 mg BID SC 08/23/25 22:00 08/24/25 08:51 80 MG Ceftriaxone Sodium 50 ml @ 100 mls/hr DAILY@09 IV 08/24/25 09:00 08/24/25 08:46 100 MLS/HR Metoprolol Tartrate 50 mg BID PO 08/24/25 10:00 08/24/25 08:50 50 MG Digoxin 0.125 mg DAILY PO 08/25/25 10:00 Furosemide 20 mg DAILY IV 08/24/25 10:00 08/24/25 11:29 20 MG Amiodarone HCl 250 ml @ 16.66 mls/ hr Q15H1M IV 08/24/25 18:15 08/24/25 18:48 16.66 MLS/HR Examination General Appearance: Cooperative. Well developed. Well nourished. NAD Head Exam: Normal inspection Neck Exam: Normal inspection. Non-tender. Normal alignment Pulmonary/Respiratory: Chest non-tender. Clear bilateral breath sounds, no crackles, no wheezing. Cardiovascular/Chest: irregular rate and rhythm. No murmurs. No JVD. Peripheral Pulses: 2+ Radial (R). 2+ Radial (L). 2+ Pedal (R). 2+ Pedal (L) Abdominal Exam: Normal bowel sounds. Soft. normal abdomen, no visible veins, Nontender. No hepatospenomegaly. No masses Ankle Exam: Negative ankle edema Lower extremities: Negative lower extremity edema Neuro/Mental Status: A&O x4. Coherent. Thoughts/Psych: Normal thought pattern. Appropriate mood and affect. Good judgement and insight Skin Exam: Normal inspection. Normal color. Warm. Dry laboratory and microbiology Laboratory Tests 08/24/25 04:39 Test 08/24/25 04:39 Range/Units Serum Glucose 89 74-106 mg/dL Labs and/or images reviewed: Labs reviewed by me, Image(s) reviewed by me Problem List/Assessment/Plan Problem List/Assessment/Plan # Acute Afib with RVR, unknown onset # Acute pulmonary edema # Possible acute CHF exacerbation # Ruled out acute pneumonia # Acute hypoxic respiratory distress, likely due to above # Ruled out PE CHADVASc score of 4 -EKG showed Afib -Echo ordered, pending report -Diltiazem drip 5ml/hr,discontinued after titrating down -started anticoagulation with aspirin 81mg po daily -cardiology consult for Dr Hu- given amiodarone bolus followed by amiodarone drip -Ddimer is 2.56- ordered CT angio chest -started on anticoagulation with lovenox 80 mg iv bid - CT angio showed no evidence of pulmonary embolism, bilateral interlobular septal thickening and mild diffuse ground-glass opacity suggestive of pulmonary edema, small bilateral pleural effusion and cardiomegaly. -started on xopenox mednebs every 6 hrs -ordered bilateral DVT scan, pending -Digoxin 0.125 mg po daily # Acute UTI -ceftriaxone 1gm iv daily # Hypertensive heart disease -resume home medications lisinopril 10mg po daily -started metoprolol tartrate 12.5 mg po once, continue with 50mg po bid PUD prophylaxis: DVT prophylaxis: Goals of care: Full code, discussed for >23 minutes Plan discussed with patient Plan discussed with: Patient My Orders My Orders Orders - LANDY RODRIGUEZ Procedure Category Date Status Time Ceftriaxone 1gm/50ml PHA 08/24/25 In Process (Rocephin) 09:00 Cardiac DIET 08/24/25 Transmitted Diet-2gna,Lofat,Lochol Dinner Date of Service: Aug 24, 2025 Billing Provider: MEENA WEBER MD Common Visit Codes: [id number] INP/OBS CARE(HIGH) LANDY RODRIGUEZ RESIDENT Aug 24, 2025 19:48
[2025-08-24] MEDS: LEVALBUTEROL HCL 1.25 MG/3 ML NEB NEB SCH (23:39)
[2025-08-25] VITALS (15 sets, daily range): BP systolic 110–153; BP diastolic 63–96; PULSE 70–118; RESP 17–20; TEMP 97–98; O2SAT 90–100
[2025-08-25] MEDS ORDERED: LEVALBUTEROL HCL 1.25 MG/3 ML NEB NEB SCH
--- NOTE | 2025-08-25 08:25 | DVH ---
Bilateral lower extremity venous duplex Clinical History:edena Comparison: XY CHEST PORTABLE on DOS: 08/23/25 Findings: Duplex Doppler evaluation of the deep venous systems of both lower extremities from the common femoral veins to the popliteal veins including color Doppler and spectral/pulsed waveform analysis was performed. RIGHT SIDE: The common femoral vein demonstrates appropriate compressibility and waveform variability. There is compressibility/patency of the great saphenous vein at the proximal thigh. The femoral vein demonstrates appropriate compressibility and waveform variability. The deep femoral vein demonstrates appropriate compressibility and waveform variability. The popliteal vein demonstrates appropriate compressibility and waveform variability. There is normal compressibility at the tibioperoneal trunk. LEFT SIDE: The common femoral vein demonstrates appropriate compressibility and waveform variability. There is compressibility/patency of the great saphenous vein at the proximal thigh. The femoral vein demonstrates appropriate compressibility and waveform variability. The deep femoral vein demonstrates appropriate compressibility and waveform variability. The popliteal vein demonstrates appropriate compressibility and waveform variability. There is normal compressibility at the tibioperoneal trunk. IMPRESSION: No right or left femoropopliteal venous thrombosis. If clinical concern/symptoms persist or worsen, short-interval follow-up study is suggested. END IMPRESSION:
[2025-08-25] MEDS: DIGOXIN 0.125 MG TAB PO SCH (10:01)
--- NOTE | 2025-08-25 10:30 | DVHPNRES ---
Progress Note Date Seen: Aug 25, 2025 Resident Creating Document: LANDY RODRIGUEZ RESIDENT Medical Necessity Reason Pt with a Central, PICC or Fol: No Subjective Review of Systems Teresa Aj is a 70-year old female with past medical history of hypertension who came to the ED with a chief complaint of shortness of breath since 2 days. Patient mentions she has been having shortness of breaths since 2 days, mostly at night, increased on lying down and she felt like she was gasping for air. The patient mentioned that she has been experiencing palpitations on and off since the last 4 years and has been following up with cardiology. The patient mentioned she also had a slight nonproductive cough since the last 2 days. She denies any fever, chills, tightness in the chest or chest pain. The patient went to urgent care this morning, where she was told she has an enlarged heart and was sent to the ED. Patient mentions she has had similar complaints in the past and had to come to the ED twice before. She mentioned she had chest pain last year when she underwent angiography but no stents were placed. On admission, patient was found to have AFib with RVR. She was admitted for further management. She was started on diltiazem drip, which was discontinued later and she was given metoprolol 12.5 mg po. Past medical history : Hypertension Past surgical history: Angiography last year, no stents placed, Tonsillectomy in childhood Home medications: Atenolol 25 mg p.o. daily, lisinopril 10 mg p.o. daily Social & Personal history: Lives at home by herself Smoking: Denies Alcohol: Rare consumption Drugs: Denies Allergies: No known allergies Patient seen and examined at bedside. Patient is alert and oriented to time, place person and responding to all questions. Eyes: No Pain, No Vision change, No Conjunctivae inflammation, No Eyelid inflammation, No Redness ENT: No Ear pain, No Ear discharge, No Nose pain, No Nose discharge, No Nose congestion, No Mouth pain, No Mouth swelling, No Throat pain, No Throat swelling Cardiovascular: No Chest Pain, No Palpitations, No Orthopnea, No Paroxysmal No Dyspnea, No Edema, No Lt Headedness Respiratory: Cough, No Dry, Shortness of breath, No SOB with exertion, No Wheezing, No Hemoptysis, No Pleuritic Pain, No Sputum Gastrointestinal: No Nausea, No Vomiting, No Abdominal Pain, No Diarrhea, No Constipation, No Melena, No Hematochezia Genitourinary: No Dysuria, No Frequency, No Incontinence, No Hematuria, No Retention 08/24/25- The patient was seen at bedside today. Patient mentioned her shortness of breath has improved since yesterday. She was evaluated by auto cleaner Dr. Hu and started on amiodarone iv bolus followed by amiodarone drip to convert her back to sinus rhythm. CT angio showed no evidence of pulmonary embolism, bilateral interlobular septal thickening and mild diffuse ground-glass opacity suggestive of pulmonary edema, small bilateral pleural effusion and cardiomegaly. We ordered lower limb DVT scan to rule out DVT and started her on breathing treatment. 08/25/25- the patient was seen at bedside today. Patient mentioned shortness of breadth has reduced. Telemetry was reviewed, the patient continued to be in AFib with RVR. We will continue with the same management and review tomorrow. Objective vital signs Vital Sign Date Time Temp Pulse Resp B/P (MAP) Pulse Ox O2 Delivery O2 Flow Rate FiO2 08/25/25 10:01 80 08/25/25 10:00 153/85 08/25/25 09:00 98.0 18 96 98.0 08/25/25 06:08 Room Air 0.0 08/25/25 06:08 21 Total Intake and Output 08/24/25 08/24/25 08/25/25 15:00 23:00 07:00 Intake Total 216.66 ml 33.33 ml 500 ml Balance 216.66 ml 33.33 ml 500 ml medications Current Medications Medications Dose Ordered Sig/Jeanna Route Start Time Stop Time Status Last Admin Dose Admin Ondansetron HCl 4 mg Q4HP PRN IV 08/23/25 16:30 Acetaminophen 650 mg Q6HP PRN PO 08/23/25 16:30 Nitroglycerin 0.4 mg Q5MINP PRN SL 08/23/25 16:30 Morphine Sulfate 2 mg Q30M PRN IV 08/23/25 16:30 Enoxaparin Sodium 80 mg Q12HR SC 08/23/25 22:00 UNV Aspirin 81 mg DAILY PO 08/24/25 10:00 08/25/25 09:59 81 MG Lisinopril 10 mg DAILY PO 08/24/25 10:00 08/25/25 10:00 10 MG Enoxaparin Sodium 80 mg BID SC 08/23/25 22:00 08/25/25 10:01 80 MG Ceftriaxone Sodium 50 ml @ 100 mls/hr DAILY@09 IV 08/24/25 09:00 08/25/25 09:59 100 MLS/HR Metoprolol Tartrate 50 mg BID PO 08/24/25 10:00 08/25/25 10:00 50 MG Digoxin 0.125 mg DAILY PO 08/25/25 10:00 08/25/25 10:01 0.125 MG Furosemide 20 mg DAILY IV 08/24/25 10:00 08/25/25 09:59 20 MG Amiodarone HCl 250 ml @ 16.66 mls/ hr Q15H1M IV 08/24/25 18:15 08/25/25 10:10 16.66 MLS/HR Levalbuterol HCl 0.625 mg Q6HR NEB 08/25/25 00:00 UNV Levalbuterol HCl 0.625 mg Q6HR NEB 08/25/25 00:00 08/25/25 06:08 0.625 MG Examination General Appearance: Cooperative. Well developed. Well nourished. NAD Head Exam: Normal inspection Neck Exam: Normal inspection. Non-tender. Normal alignment Pulmonary/Respiratory: Chest non-tender. Clear bilateral breath sounds, no crackles, no wheezing. Cardiovascular/Chest: irregular rate and rhythm. No murmurs. No JVD. Peripheral Pulses: 2+ Radial (R). 2+ Radial (L). 2+ Pedal (R). 2+ Pedal (L) Abdominal Exam: Normal bowel sounds. Soft. normal abdomen, no visible veins, Nontender. No hepatospenomegaly. No masses Ankle Exam: Negative ankle edema Lower extremities: Negative lower extremity edema Neuro/Mental Status: A&O x4. Coherent. Thoughts/Psych: Normal thought pattern. Appropriate mood and affect. Good judgement and insight Skin Exam: Normal inspection. Normal color. Warm. Dry laboratory and microbiology Laboratory Tests 08/24/25 04:39 Test 08/24/25 04:39 Range/Units Serum Glucose 89 74-106 mg/dL Labs and/or images reviewed: Labs reviewed by me, Image(s) reviewed by me Problem List/Assessment/Plan Problem List/Assessment/Plan Assessment/Plan # Acute Afib with RVR, unknown onset # Acute pulmonary edema # Hypertensive heart disease with Possible acute on chronic systolic/diastolic heart failure # Ruled out acute bacterial pneumonia # Acute hypoxic respiratory failure due to above # Ruled out Pulmonary embolism # Ruled out DVT CHADVASc score of 4 -EKG showed Afib with RVR -Echo ordered, pending report -Stopped diltiazem drip due to unknown LVEF -Continue anticoagulation with enoxaparin therapeutic dose -cardiology consult for Dr Hu- given amiodarone bolus followed by amiodarone drip - CT angio showed no evidence of pulmonary embolism, bilateral interlobular septal thickening and mild diffuse ground-glass opacity suggestive of pulmonary edema, small bilateral pleural effusion and cardiomegaly. - Doppler scan of lower limb excluded DVT. - Levo-albuterol Q6hr. -Continue Digoxin 0.125 mg po daily - Lisinopril 10 mg po daily and metoprolol tartrate 50 mg bid. # Acute complicated cystitis -UA suggesting UTI -Continue ceftriaxone 1gm iv daily DVT prophylaxis: On therapeutic enoxaparin Goals of care: Full code, discussed for >23 minutes Plan discussed with Dr Ray Plan discussed with: Patient My Orders My Orders Orders - LANDY RODRIGUEZ RESIDENT Procedure Category Date Status Time Cardiac DIET 08/24/25 Transmitted Diet-2gna,Lofat,Lochol Dinner Bilat Lower Dvt US 08/24/25 Resulted 19:55 Levalbuterol Hcl PHA 08/25/25 In Process (Xopenex Medneb) 00:00 Date of Service: Aug 25, 2025 Billing Provider: MEENA RAY MD Common Visit Codes: [id number] INP/OBS CARE(HIGH) LANDY RODRIGUEZ RESIDENT Aug 25, 2025 10:30 DOMINIC HIDALGO RESIDENT Aug 25, 2025 21:04
[2025-08-25] MEDS: NITROGLYCERIN 2% OINT 1GM PKG TD SCH (15:25)
[2025-08-25] MEDS: ACETAMINOPHEN 325 MG TAB PO PRN (19:24)
[2025-08-26] VITALS (17 sets, daily range): BP systolic 118–143; BP diastolic 67–90; PULSE 61–117; RESP 16–20; TEMP 97.1–98.3; O2SAT 96–100
[2025-08-26] MEDS: IPRATROPIUM BROM 0.5 MG/2.5ML INH SOL NEB SCH (00:33)
[2025-08-26 08:57] LABS: Chloride 102 mmol/L (98-107); Potassium 3.8 mmol/L (3.5-5.1); Sodium 140 mmol/L (136-145)
[2025-08-26 08:58] LABS: Anion Gap 10 (5-15); Calcium 9.3 mg/dL (8.7-10.4); Carbon Dioxide 28 mmol/L (20-31)
[2025-08-26 09:03] LABS: BUN/Creatinine Ratio 11.2 (10.0-20.0); Blood Urea Nitrogen 10 mg/dL (9-23); Glucose 149 mg/dL (74-106)
[2025-08-26] MEDS: METOPROLOL TARTRATE 50 MG TAB PO SCH (10:51)
[2025-08-26] MEDS ORDERED: AMIO400T3 PO (13:00)
[2025-08-26] MEDS ORDERED: FURO1TAB33 PO (13:00)
[2025-08-26] MEDS ORDERED: DIGO0.12 PO (13:00)
[2025-08-26] MEDS ORDERED: METO-159 PO (13:00)
[2025-08-26] MEDS ORDERED: CEFD300C2 PO (13:00)
[2025-08-26] MEDS: AMIODARONE HCL 200 MG TAB PO ONE ×2 (13:00→15:06)
[2025-08-26] MEDS ORDERED: APIX5TAB PO (13:00)
--- NOTE | 2025-08-26 14:04 | DVHPNRES ---
Progress Note Date Seen: Aug 26, 2025 Resident Creating Document: LANDY RODRIGUEZ RESIDENT Medical Necessity Reason Pt with a Central, PICC or Fol: No Subjective Review of Systems Teresa Aj is a 70-year old female with past medical history of hypertension who came to the ED with a chief complaint of shortness of breath since 2 days. Patient mentions she has been having shortness of breaths since 2 days, mostly at night, increased on lying down and she felt like she was gasping for air. The patient mentioned that she has been experiencing palpitations on and off since the last 4 years and has been following up with cardiology. The patient mentioned she also had a slight nonproductive cough since the last 2 days. She denies any fever, chills, tightness in the chest or chest pain. The patient went to urgent care this morning, where she was told she has an enlarged heart and was sent to the ED. Patient mentions she has had similar complaints in the past and had to come to the ED twice before. She mentioned she had chest pain last year when she underwent angiography but no stents were placed. On admission, patient was found to have AFib with RVR. She was admitted for further management. She was started on diltiazem drip, which was discontinued later and she was given metoprolol 12.5 mg po. Past medical history : Hypertension Past surgical history: Angiography last year, no stents placed, Tonsillectomy in childhood Home medications: Atenolol 25 mg p.o. daily, lisinopril 10 mg p.o. daily Social & Personal history: Lives at home by herself Smoking: Denies Alcohol: Rare consumption Drugs: Denies Allergies: No known allergies Patient seen and examined at bedside. Patient is alert and oriented to time, place person and responding to all questions. Eyes: No Pain, No Vision change, No Conjunctivae inflammation, No Eyelid inflammation, No Redness ENT: No Ear pain, No Ear discharge, No Nose pain, No Nose discharge, No Nose congestion, No Mouth pain, No Mouth swelling, No Throat pain, No Throat swelling Cardiovascular: No Chest Pain, No Palpitations, No Orthopnea, No Paroxysmal No Dyspnea, No Edema, No Lt Headedness Respiratory: Cough, No Dry, Shortness of breath, No SOB with exertion, No Wheezing, No Hemoptysis, No Pleuritic Pain, No Sputum Gastrointestinal: No Nausea, No Vomiting, No Abdominal Pain, No Diarrhea, No Constipation, No Melena, No Hematochezia Genitourinary: No Dysuria, No Frequency, No Incontinence, No Hematuria, No Retention 08/24/25- The patient was seen at bedside today. Patient mentioned her shortness of breath has improved since yesterday. She was evaluated by physical ther Dr. Hu and started on amiodarone iv bolus followed by amiodarone drip to convert her back to sinus rhythm. CT angio showed no evidence of pulmonary embolism, bilateral interlobular septal thickening and mild diffuse ground-glass opacity suggestive of pulmonary edema, small bilateral pleural effusion and cardiomegaly. We ordered lower limb DVT scan to rule out DVT and started her on breathing treatment. 08/25/25- The patient was seen at bedside today. Patient mentioned shortness of breadth has reduced. Telemetry was reviewed, the patient continued to be in AFib with RVR. We will continue with the same management and review tomorrow. 08/26/25- The patient was seen at bedside today. gaming associate was reviewed, patient continued to be in Afib with RVR, metoprolol dose was increased to 100mg bid. We started with amiodarone 400mg bid po and will discontinue the amiodarone drip in the evening to transition to po medication. Ordered digoxin level for tomorrow morning labs. We set up appointment at Dr Hu's office on 09/08/25. Possible discharge tomorrow. Objective vital signs Vital Sign Date Time Temp Pulse Resp B/P (MAP) Pulse Ox O2 Delivery O2 Flow Rate FiO2 08/26/25 13:00 97.8 62 16 136/87 (103) 100 97.8 08/26/25 11:53 Room Air* 0 21 Total Intake and Output 08/25/25 08/25/25 08/26/25 15:00 23:00 07:00 Intake Total 400 ml 500 ml Balance 400 ml 500 ml medications Current Medications Medications Dose Ordered Sig/Jeanna Route Start Time Stop Time Status Last Admin Dose Admin Ondansetron HCl 4 mg Q4HP PRN IV 08/23/25 16:30 Acetaminophen 650 mg Q6HP PRN PO 08/23/25 16:30 08/25/25 19:24 650 MG Nitroglycerin 0.4 mg Q5MINP PRN SL 08/23/25 16:30 Morphine Sulfate 2 mg Q30M PRN IV 08/23/25 16:30 Enoxaparin Sodium 80 mg Q12HR SC 08/23/25 22:00 UNV Aspirin 81 mg DAILY PO 08/24/25 10:00 08/26/25 10:49 81 MG Lisinopril 10 mg DAILY PO 08/24/25 10:00 08/26/25 10:50 10 MG Ceftriaxone Sodium 50 ml @ 100 mls/hr DAILY@09 IV 08/24/25 09:00 08/26/25 08:59 100 MLS/HR Digoxin 0.125 mg DAILY PO 08/25/25 10:00 08/26/25 10:51 0.125 MG Furosemide 20 mg DAILY IV 08/24/25 10:00 08/26/25 10:49 20 MG Amiodarone HCl 250 ml @ 16.66 mls/ hr Q15H1M IV 08/24/25 18:15 08/26/25 21:59 08/26/25 00:28 16.66 MLS/HR Levalbuterol HCl 0.625 mg Q6HR NEB 08/25/25 00:00 UNV Levalbuterol HCl 0.625 mg Q6HR NEB 08/25/25 00:00 08/26/25 11:53 0.625 MG Ipratropium Everson 0.5 mg Q6HR NEB 08/26/25 00:00 08/26/25 11:53 0.5 MG Metoprolol Tartrate 100 mg BID PO 08/26/25 10:00 08/26/25 10:51 100 MG Amiodarone HCl 400 mg Q12HR PO 08/26/25 22:00 Apixaban 5 mg BID PO 08/26/25 22:00 Examination General Appearance: Cooperative. Well developed. Well nourished. NAD Head Exam: Normal inspection Neck Exam: Normal inspection. Non-tender. Normal alignment Pulmonary/Respiratory: Chest non-tender. Clear bilateral breath sounds, no crackles, no wheezing. Cardiovascular/Chest: irregular rate and rhythm. No murmurs. No JVD. Peripheral Pulses: 2+ Radial (R). 2+ Radial (L). 2+ Pedal (R). 2+ Pedal (L) Abdominal Exam: Normal bowel sounds. Soft. normal abdomen, no visible veins, Nontender. No hepatospenomegaly. No masses Ankle Exam: Negative ankle edema Lower extremities: Negative lower extremity edema Neuro/Mental Status: A&O x4. Coherent. Thoughts/Psych: Normal thought pattern. Appropriate mood and affect. Good judgement and insight Skin Exam: Normal inspection. Normal color. Warm. Dry laboratory and microbiology Laboratory Tests 08/26/25 08:27 08/24/25 04:39 Test 08/26/25 08:27 Range/Units Serum Glucose 149 H 74-106 mg/dL Labs and/or images reviewed: Labs reviewed by me, Image(s) reviewed by me Problem List/Assessment/Plan Problem List/Assessment/Plan Assessment/Plan # Acute Afib with RVR, unknown onset # Acute pulmonary edema # Hypertensive heart disease with possible acute on chronic systolic/diastolic heart failure # Ruled out acute bacterial pneumonia # Acute hypoxic respiratory failure due to above # Ruled out Pulmonary embolism # Ruled out DVT CHADVASc score of 4 -EKG showed Afib with RVR -Echo ordered, pending report -Stopped diltiazem drip due to unknown LVEF -Continue anticoagulation with enoxaparin therapeutic dose -cardiology consult for Dr Hu- given amiodarone bolus followed by amiodarone drip - CT angio showed no evidence of pulmonary embolism, bilateral interlobular septal thickening and mild diffuse ground-glass opacity suggestive of pulmonary edema, small bilateral pleural effusion and cardiomegaly. - Doppler scan of lower limb excluded DVT. - Levo-albuterol Q6hr. -Continue Digoxin 0.125 mg po daily - Lisinopril 10 mg po daily and metoprolol tartrate 100 mg bid. # Acute complicated cystitis -UA suggesting UTI -Continue ceftriaxone 1gm iv daily DVT prophylaxis: On therapeutic enoxaparin Goals of care: Full code, discussed for >23 minutes Plan discussed with Dr Ray Plan discussed with: Patient My Orders My Orders Orders - LANDY RODRIGUEZ RESIDENT Procedure Category Date Status Time Ipratropium Medneb PHA 08/26/25 In Process (Atrovent Medneb) 00:00 Digoxin (Lanoxin) LAB 08/27/25 Verified 04:00 Date of Service: Aug 26, 2025 Billing Provider: MEENA RAY MD Common Visit Codes: [id number] INP/OBS CARE(HIGH) JENNIFERMARBINRAFAL MACIEL RESIDENT Aug 26, 2025 14:04
[2025-08-26] MEDS: APIXABAN 5 MG TAB PO SCH (21:05)
[2025-08-26] MEDS: AMIODARONE HCL 200 MG TAB PO SCH (21:05)
[2025-08-26] MEDS ORDERED: AMIODARONE HCL 200 MG TAB PO SCH (22:00)
[2025-08-27] VITALS (11 sets, daily range): BP systolic 106–132; BP diastolic 66–78; PULSE 58–88; RESP 16–18; TEMP 97.1–98.8; O2SAT 94–100
[2025-08-27 08:42] LABS: Anion Gap 11 (5-15); Carbon Dioxide 28 mmol/L (20-31); Chloride 102 mmol/L (98-107); Potassium 4.7 mmol/L (3.5-5.1); Sodium 141 mmol/L (136-145)
[2025-08-27 08:43] LABS: Calcium 9.6 mg/dL (8.7-10.4)
[2025-08-27 08:48] LABS: BUN/Creatinine Ratio 16.2 (10.0-20.0); Blood Urea Nitrogen 16 mg/dL (9-23); Glucose 87 mg/dL (74-106)
[2025-08-27] MEDS: FUROSEMIDE 40 MG TAB PO SCH (10:33)
--- NOTE | 2025-08-27 11:22 | DVHDSRES ---
Discharge Summary Date of Admission Resident Creating Document: LANDY RODRIGUEZ RESIDENT Aug 23, 2025 at 16:24 Date of Discharge: Aug 27, 2025 Admitting Diagnosis New onset Afib with RVR Labs/Diagnostic Data: Laboratory Results Test 08/27/25 06:37 08/24/25 04:39 08/23/25 22:01 08/23/25 21:30 Sodium Level 141 mmol/L (136-145) Potassium Level 4.7 mmol/L (3.5-5.1) Chloride Level 102 mmol/L (98-107) Carbon Dioxide Level 28 mmol/L (20-31) Anion Gap 11 (5-15) Blood Urea Nitrogen 16 mg/dL (9-23) Creatinine 0.99 mg/dL (0.550-1.02) Glomerular Filtration Rate Calc 62 mL/min (>90) BUN/Creatinine Ratio 16.2 (10.0-20.0) Serum Glucose 87 mg/dL (74-106) Calcium Level 9.6 mg/dL (8.7-10.4) Digoxin Level 0.34 ng/mL (0.8-2) White Blood Count 7.2 10^3/uL (4.4-10.8) Red Blood Count 4.46 10^6/uL (4.0-5.20) Hemoglobin 12.8 g/dL (12.2-16.2) Hematocrit 38.3 % (36.0-46.0) Mean Corpuscular Volume 85.7 fL (80.0-100.0) Mean Corpuscular Hemoglobin 28.6 pg (28.0-32.0) Mean Corpuscular Hemoglobin Concent 33.4 g/dL (32.0-36.0) Red Cell Distribution Width 14.0 % (11.8-14.3) Platelet Count 253 10^3/uL (140-450) Mean Platelet Volume 8.3 fL (6.9-10.8) Neutrophils (%) (Auto) 67.5 % (37.0-80.0) Lymphocytes (%) (Auto) 21.3 % (10.0-50.0) Monocytes (%) (Auto) 9.2 % (0.0-12.0) Eosinophils (%) (Auto) 1.4 % (0.0-7.0) Basophils (%) (Auto) 0.6 % (0.0-2.0) Neutrophils # (Auto) 4.9 10 ^3/uL (1.6-8.6) Lymphocytes # (Auto) 1.5 10 ^3/uL (0.4-5.4) Monocytes # (Auto) 0.7 10 ^3/uL (0-1.3) Eosinophils # (Auto) 0.1 10 ^3/uL (0-0.8) Basophils # (Auto) 0 10 ^3/uL (0-0.2) Nucleated Red Blood Cells 0.1 % Total Bilirubin 1.3 mg/dL (0.2-1.0) Aspartate Amino Transferase (AST) 34 U/L (13-40) Alanine Aminotransferase (ALT) 61 U/L (7-40) Alkaline Phosphatase 74 U/L (46-116) Total Protein 6.5 g/dL (5.7-8.2) Albumin 3.9 g/dL (3.2-4.8) SARS-CoV-2 Antigen (Rapid) Negative (NEGATIVE) Urine Color Yellow (Yellow) Urine Clarity Clear (Clear) Urine pH 5.0 (5.0-9.0) Urine Specific [place] 1.027 (1.001-1.035) Urine Protein Trace (Negative) Urine Ketones 1+ (Negative) Urine Blood Negative /uL (Negative) Urine Nitrite Negative (Negative) Urine Bilirubin Negative (Negative) Urine Urobilinogen Normal mg/dL (Negative) Urine Leukocyte Esterase 3+ /uL (Negative) Urine RBC 5 /hpf (0 - 4) Urine Microscopic WBC 26 /HPF (0-5) Urine Squamous Epithelial Cells Few /hpf (<5) Urine Bacteria None seen /hpf (None Seen) Urine Glucose Normal mg/dL (Normal) Urine Opiates Screen Neg (NEGATIVE) Urine Fentanyl Screen Neg (NEGATIVE) Urine Barbiturates Screen Neg (NEGATIVE) Urine Phencyclidine Screen Neg (NEGATIVE) Urine Amphetamines Screen Neg (NEGATIVE) Urine Benzodiazepines Screen Neg (NEGATIVE) Urine Cocaine Screen Neg (NEGATIVE) Urine Cannabinoids Screen Neg (NEGATIVE) Test 08/23/25 17:09 08/23/25 13:52 08/23/25 10:59 Influenza Type A Antigen Negative (Negative) Influenza Type B Antigen Negative (Negative) D-Dimer, Quantitative 2.58 mg/L FEU (0.0-0.49) Magnesium Level 2.1 mg/dL (1.6-2.6) Troponin I High Sensitivity 6 ng/L (</=34) Thyroid Stimulating Hormone (TSH) 2.69 uIU/mL (0.55-4.78) Hemoglobin A1c 5.7 % A1C (<5.7) B-Type Natriuretic Peptide 483.66 pg/mL (0-100) Other Laboratory Tests 08/27/25 06:37 08/24/25 04:39 Brief Hx & Hospital Course: Holley Aj is a 70-year old female with past medical history of hypertension who came to the ED with the chief complaint of shortness of breath since 2 days. Patient mentioned she has been having shortness of breath since 2 days, mostly at night, increased on lying down and she felt like she was gasping for air. The patient mentioned that she has been experiencing palpitations on and off since the last 4 years and has been following up with cardiology. She also had a mild nonproductive cough since the last 2 days. She denied any fever, chills, tightness in the chest or chest pain. Patient mentioned she has had similar complaints in the past and had to come to the ED twice before. On admission, patient was found to have AFib with RVR. CT angio was negative for pulmonary embolism and DVT scan for lower extremities was negative. She was started on diltiazem drip which was discontinued later. Cardiology was consulted and she was started on amiodarone drip which was subsequently transitioned to po amiodarone 400mg bid with metoprolol 100mg bid,lasix 20mg daily po and digoxin 0.125 mg daily.Her shortness of breath improved and she was discharged home on rate controlled Afib. Digoxin level today was 0.34. All medications and recommendations were thoroughly explained to the patient and she demonstrated understanding of the same. An apppointment was set up at Dr Hu's office on 09/08/25. [facility] Hu and get repeat digoxin levels. Past medical history : Hypertension Past surgical history: Angiography last year, no stents placed, Tonsillectomy in childhood Home medications: Atenolol 25 mg p.o. daily, lisinopril 10 mg p.o. daily Social & Personal history: Lives at home by herself Smoking: Denies Alcohol: Rare consumption Drugs: Denies Allergies: No known allergies General Appearance: Cooperative. Well developed. Well nourished. NAD Head Exam: Normal inspection Neck Exam: Normal inspection. Non-tender. Normal alignment Pulmonary/Respiratory: Chest non-tender. Clear bilateral breath sounds, no crackles, no wheezing. Cardiovascular/Chest: irregular rate and rhythm. No murmurs. No JVD. Peripheral Pulses: 2+ Radial (R). 2+ Radial (L). 2+ Pedal (R). 2+ Pedal (L) Abdominal Exam: Normal bowel sounds. Soft. normal abdomen, no visible veins, Nontender. No hepatospenomegaly. No masses Ankle Exam: Negative ankle edema Lower extremities: Negative lower extremity edema Neuro/Mental Status: A&O x4. Coherent. Thoughts/Psych: Normal thought pattern. Appropriate mood and affect. Good judgement and insight Skin Exam: Normal inspection. Normal color. Warm. Dry Operations or Procedures 1. PROCEDURE(s): CXRP - CHEST PORTABLE REASON: SOB ORDER NUMBER(s): [id number], ACCESSION NUMBER(s): [id number] CHEST RADIOGRAPH Indication: SOB Technique: Single frontal view of the chest was obtained COMPARISON: XY [facility] COMP 5 VIEW on DOS: 12/27/22 FINDINGS: Lines and Tubes: None Lungs: Increased interstitial prominence. This may represent pulmonary vascular congestion and/or viral pneumonia. Pleura: No effusion. No pneumothorax. Cardiomediastinal contours: Unremarkable Bones: Unremarkable IMPRESSION: Increased interstitial prominence. This may represent pulmonary vascular congestion and/or viral pneumonia. 2.PROCEDURE(s): CTACH - CT ANGIO CHEST CONTRAST REASON: rule out PE ORDER NUMBER(s): [id number], ACCESSION NUMBER(s): [id number] CTA Chest with intravenous contrast INDICATION: rule out PE COMPARISON: XY CHEST PORTABLE on DOS: 08/23/25 TECHNIQUE: Multidetector spiral CTA of the chest was performed of the chest with 100 cc of omnipaque 350 intravenous contrast. PULMONARY ANGIOGRAPHY PROTOCOL was utilized using a bolus-tracking technique centered on the main pulmonary artery. Coronal and sagittal multiplanar and MIP reformats were performed. Radiation Dose : 1. Chest: CTDI volume is 38.44 mGy. Dose-length product is 991.7 mGy*cm The dose indicators for CT are the volume Computed Tomography (CT) Dose Index (CTDIvol) and the Dose Length Product (DLP), and are measured in units of mGy and mGy-cm, respectively. These indicators are not patient dose, but values generated from the CT scanner acquisition factors. The report includes radiation exposure data for exposures received during this examination. FINDINGS: Pulmonary artery: No central, lobar or proximal segmental pulmonary embolus. Lower neck: Unremarkable thyroid. Lungs: Bilateral interlobular septal thickening. Mild diffuse ground-glass opacities. Central airways: Patent Pleura: No pneumothorax. Small bilateral pleural effusions. Heart/Vascular Structures: The heart is enlarged. No pericardial effusion. Thoracic aorta is normal in caliber. No aneurysm or dissection. Lymph Nodes: No mediastinal or hilar lymphadenopathy. Esophagus:Grossly unremarkable. Musculoskeletal: Unremarkable. Body wall: Unremarkable. Upper abdomen: Unremarkable. IMPRESSION: 1. No evidence of pulmonary embolism. 2. Bilateral interlobular septal thickening and mild diffuse ground-glass opacity suggestive of pulmonary edema. 3. Small bilateral pleural effusions. 4. Cardiomegaly. 3.PROCEDURE(s): BLDVT - BiLat Lower DVT REASON: to rule out dvt ORDER NUMBER(s): [id number], ACCESSION NUMBER(s): [id number] Bilateral lower extremity venous duplex Clinical History:edena Comparison: XY CHEST PORTABLE on DOS: 08/23/25 Findings: Duplex Doppler evaluation of the deep venous systems of both lower extremities from the common femoral veins to the popliteal veins including color Doppler and spectral/pulsed waveform analysis was performed. RIGHT SIDE: The common femoral vein demonstrates appropriate compressibility and waveform variability. There is compressibility/patency of the great saphenous vein at the proximal thigh. The femoral vein demonstrates appropriate compressibility and waveform variability. The deep femoral vein demonstrates appropriate compressibility and waveform variability. The popliteal vein demonstrates appropriate compressibility and waveform variability. There is normal compressibility at the tibioperoneal trunk. LEFT SIDE: The common femoral vein demonstrates appropriate compressibility and waveform variability. There is compressibility/patency of the great saphenous vein at the proximal thigh. The femoral vein demonstrates appropriate compressibility and waveform variability. The deep femoral vein demonstrates appropriate compressibility and waveform variability. The popliteal vein demonstrates appropriate compressibility and waveform variability. There is normal compressibility at the tibioperoneal trunk. IMPRESSION: No right or left femoropopliteal venous thrombosis. If clinical concern/symptoms persist or worsen, short-interval follow-up study is suggested. Condition at Discharge: Fair Final Diagnosis/Problems List Acute Afib with RVR, unknown onset Acute pulmonary edema Hypertensive heart disease with possible acute on chronic systolic/diastolic heart failure,pending echo report Acute hypoxic respiratory failure due to above Acute complicated cystitis Ruled out acute bacterial pneumonia Ruled out Pulmonary embolism Ruled out DVT Discharge Disposition: Home Discharge Instruct/Medications Diet: Cardiac 2g Na,low cholest Activity: No Restrictions, As Tolerated Follow Up/Referral: follow up with Dr Hu on 09/08/25 [facility]25 Scheduled Amiodarone Hcl (Amiodarone Hcl), 400 MG PO BID Apixaban Base (Eliquis), 5 MG PO BID Aspirin (Aspir-Low), 81 MG PO DAILY, (Reported) Digoxin (Digoxin), 125 MCG PO DAILY Furosemide (Lasix), 1 TAB PO DAILY Lisinopril (Lisinopril), 10 MG PO DAILY, (Reported) Metoprolol Tartrate (Metoprolol Tartrate), 1 TAB PO BID Scheduled PRN Cefdinir (Cefdinir), 1 CAP PO BID PRN Discontinued Medications Atenolol (Atenolol), 25 MG PO DAILY, (Reported) Discharge Statement: "Patient was advised to return to the ER or call 911 if any headaches, dizziness, shortness of breath, chest pain, abdominal pain, bleeding, fevers, or worsening of medical condition. Patient was counseled about treatment plan, medications, possible side effects, patientverbalized understanding. All questions were answered to the best of my ability. This discharge took greater then 30 minutes in planning, reviewing documentation, counseling the patient, and discussing with other team members." ASSESSMENT ASSESSMENT Assessment new onset Afib with RVR Date of Service: Aug 27, 2025 Billing Provider: MEENA WEBER MD Common Visit Codes: 56694-IGZ/OBS DISCH DAY >30min Date of Service: Aug 27, 2025 Billing Provider: MEENA WEBER MD Common Visit Codes: 16317-WVM/OBS DISCH DAY >30min LANDY RODRIGUEZ RESIDENT Aug 27, 2025 11:22
--- NOTE | 2025-08-29 10:46 | DVHSR ---
APPROVED REPORT EXAM: Two-dimensional and M-mode echocardiogram with Doppler and color Doppler. Blood Pressure: 146/84 mmHg INDICATION Possible CHF exacerbation RISK FACTORS Height: 5'7", Weight: 185 DIMENSIONS LVDd 4.5 (3.8-5.7cm) LA (2D) 3.9 (1.9-4.0cm) Aortic Root 3.0 (2.0-3.7cm) LVDs 3.8 (2.5-4.0cm) LA (MM) (1.9-4.0cm) Aortic Cusp Exc 1.6 (1.5-2.0cm) EF (%) 38.0 (55-70%) Rt. Atrium 4.1 (1.9-4.0cm) Asc. Aorta cm IVSd 1.1 (0.7-1.1cm) RV (D) (1.8-2.4cm) PWd 1.0 (0.7-1.1cm) Mitral Valve Mitral Mitral Stenosis E wave 1.02m/s MV Mean GR. mmHg E/A ratio 0.0 2D MVA cm2 Aortic Valve Aortic Valve Aortic Stenosis V1 0.71m/s AO Mean GR. 2mmHg V2 0.96m/s AO Peak GR. 4mmHg LVOT Diameter 1.8 (1.8-2.4cm) Doppler ROBB 1.88cm2 Pulmonic Valve V2 0.80m/s Tricuspid Valve TR Velocity 3.33m/s RVSP 59mmHg Other Information Quality : Rhythm : Atrial Fibrillation Technically limited study due to body habitus and rhythm. Conclusion lvef 45-50% afib noted RV dysfunction left atrium enlarged mild mitral regurg moderate tricuspid regurg pulm htn, pasp >45 mmhg
== END 2025-08-27 14:31 | disposition home or self-care (01) | DRG 291 ==
LOC: ER 10:37 → OVERFLOW 16:24 → TELE-WESTW 08-24 17:34
PROVIDERS: ADMIT Internal Medicine; ATTEND Internal Medicine
DX: I11.0 Hypertensive heart disease with heart failure (principal); I50.43 Acute on chronic combined systolic (congestive) and diastolic (congestive) heart failure; J96.01 Acute respiratory failure with hypoxia; N30.00 Acute cystitis without hematuria; I48.91 Unspecified atrial fibrillation; Z20.822 Contact with and (suspected) exposure to COVID-19; E78.5 Hyperlipidemia, unspecified
CPT/HCPCS: 36415; 71045; 71275; 80048; 80053; 80162; 80307; 81001; 83036; 83735; 83880; 84443; 84484; 85025; 85379; 87426; 87804; 93005; 93306; 93970; 94640; 96365; 96375; 99291; G0378

== ENCOUNTER 2025-09-08 09:59 | Day surgery (SDC) | payer MEDICARE ==
[~2025-09-08] VITALS: Ht 170.2 cm; Wt 83.0 kg
[~2025-09-08 09:59] MED LIST changes: +AMIO400T3 PO; +APIX5TAB PO; -ATEN-60 PO; +DIGO0.12 PO; +FURO1TAB33 PO; +METO-159 PO
[2025-09-08] MEDS ORDERED: LIDOCAINE VISCOUS 2% 15ML UD PO ONE (10:15)
[2025-09-08] MEDS ORDERED: MIDAZOLAM HCL 2MG/2ML 2ml VIAL (1mg/ml) IV ONE (10:15)
[2025-09-08] MEDS ORDERED: fentaNYL CITRATE 100 MCG/2 ML VL IV ONE (10:15)
[2025-09-08] MEDS ORDERED: diphenhydrAMINE HCL 50 MG/1 ML VL IV ONE (10:15)
--- NOTE | 2025-09-08 11:12 | DVHOP2 ---
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 The patient was brought to the cardiac laboratory sample carrier in n.p.o. state. the patient was given 15 ml of oral viscous lidocaine. the patient was placed in a left lateral decubitus position with bite block in mouth. NExt conscious sedation was administered per laboratory sample carrier protocol with _2_ mg of versed and __50_ mcg of fentanyl and 50 mg of IV benadryl . Next a FLORENCE probe was advanced to the mid esophagus with ease and multiple planar images obtained. At the completion of the procedure , probe was removed and there were no immediate complications. FINDINGS: Left Ventricle: Normal LV size moderate dysfunction LVEF estimated at 40% Right Ventricle: NOrmal RV size and function Left atrium: enlarged, smoke in LA Right atrium: mild enlarged Left atrial appendage: no thrombus noted, decreased velocity on PW monitoring Aortic valve: trileaflet valve, no severe or AI Mitral Valve: structurally normal, mild to moderate mitral regurg, no MS Tricuspid Valve: mild ricuspid regurgitaiton, no TS Pulmonic Valve: structurally normal, no severe PIor PS Interatrial septum: negative color flow for R to L shunt Ascending aorta: no severe plaquing Next we sync'ed to 200 J and 1 shock delivered with successful anglican of Normal Sinus rhythm. CONCLUSIONS: 1. Successful FLORENCE guided DCCV PLAN: cont doac dc digoxin cut amio dose in / HANNA LAMBERT MD Sep 08, 2025 11:12
--- NOTE | 2025-09-08 11:49 | ECG ---
[facility] Test Date: 2025-09-08 Test Time: 11:06:12 Pat Name: JERSEY CONROY Department: Room: Gender: F Artist'S Model: STACEY : 1955 Requested By: HANNA LAMBERT Order Number: [id number] Reading MD: Mirza Colon Measurements Intervals [place] Rate: 44 P: 60 CO: 210 QRS: -28 QRSD: 108 T: 160 QT: 472 QTc: 403 Interpretive Statements Marked sinus bradycardia with 1st degree AV block Cannot rule out Anterior infarct , age undetermined ST & T wave abnormality, consider lateral ischemia Electronically Signed On 09-08-2025 19:25:21 PST by Mirza Colon Please click the below link to view image of tracing.
== END 2025-09-08 12:50 | disposition home or self-care (01) ==
LOC: CATH 09:59
PROVIDERS: ATTEND Internal Medicine
DX: I48.91 Unspecified atrial fibrillation (principal); I08.1 Rheumatic disorders of both mitral and tricuspid valves; I10 Essential (primary) hypertension; E78.5 Hyperlipidemia, unspecified; Z79.82 Long term (current) use of aspirin; Z79.899 Other long term (current) drug therapy; Z87.01 Personal history of pneumonia (recurrent); Z87.09 Personal history of other diseases of the respiratory system; Z98.61 Coronary angioplasty status; Z82.49 Family history of ischemic heart disease and other diseases of the circulatory system; Z80.9 Family history of malignant neoplasm, unspecified
CPT/HCPCS: 92960; 93005; 93312; 93325; J1200; J2250; J3010; 99152